=== PATIENT | female | born 1990 | race Asian ===

== ENCOUNTER 2023-05-26 13:15 | Emergency (ER) | payer MEDICAID ==
[~2023-05-26] VITALS: Ht 165.1 cm; Wt 75.0 kg
[~2023-05-26 13:15] MED LIST: FERR325T6 PO; IBUP-2030 PO; PREN1TAB78 PO; VITAMIN C
[2023-05-26 13:26] VITALS: BP 127/63; PULSE 100; RESP 18; TEMP 98.6; O2SAT 100
[2023-05-26] MEDS ORDERED: DIPH25CA83 MT (14:10)
[2023-05-26] MEDS ORDERED: HYDR453.3 TP (14:15)
== END 2023-05-26 14:31 | disposition home or self-care (01) ==
LOC: ER 13:29
DX: R21 Rash and other nonspecific skin eruption (principal)
CPT/HCPCS: 99281; 99282

== ENCOUNTER 2024-01-28 09:53 | Emergency (ER) | payer MEDICAID ==
[~2024-01-28] VITALS: Ht 160 cm; Wt 80.0 kg
[~2024-01-28 09:53] MED LIST changes: +DIPH25CA83 MT; +HYDR453.3 TP
[2024-01-28 10:01] VITALS: O2SAT 99
[2024-01-28] MEDS ORDERED: AMOX-494 MT (10:49)
[2024-01-28] MEDS ORDERED: IBUP-2030 MT (10:49)
[2024-01-28] MEDS ORDERED: KETOROLAC 30MG/ML VIAL IM ONE (11:00)
[2024-01-28] MEDS ORDERED: HYDROCODONE/ACETAMINOPHEN 5/325MG TABLET PO ONE (11:00)
[2024-01-28 11:01] VITALS: TEMP 98.5
[2024-01-28 11:19] VITALS: BP 123/66; PULSE 81; RESP 16
[2024-01-28] MEDS: KETOROLAC 30MG/ML VIAL IM SCH (11:19)
[2024-01-28] MEDS: HYDROCODONE/ACETAMINOPHEN 5/325MG TABLET PO SCH (11:19)
== END 2024-01-28 11:04 | disposition home or self-care (01) ==
LOC: ER 10:14
DX: K04.7 Periapical abscess without sinus (principal); Z98.890 Other specified postprocedural states; Z79.899 Other long term (current) drug therapy
CPT/HCPCS: 81025; 96372; 99283; J1885; Z7610

== ENCOUNTER 2025-07-10 19:24 | Emergency (ER) | payer MEDICAID ==
[~2025-07-10] VITALS: Ht 160 cm; Wt 76.0 kg
[~2025-07-10 19:24] MED LIST changes: +AMOX-494 MT; +IBUP-2030 MT
[2025-07-10 19:41] VITALS: TEMP 36.8; O2SAT 100
[2025-07-10] MEDS ORDERED: ACET-2708 MT (23:35)
[2025-07-11 00:46] VITALS: BP 126/83; PULSE 80; RESP 14; O2SAT 100
== END 2025-07-11 00:46 | disposition home or self-care (01) ==
LOC: ER 19:24
DX: S92.512A Displaced fracture of proximal phalanx of left lesser toe(s), initial encounter for closed fracture (principal); Z79.899 Other long term (current) drug therapy; Z98.890 Other specified postprocedural states; W01.0XXA Fall on same level from slipping, tripping and stumbling without subsequent striking against object, initial encounter; Y93.89 Activity, other specified; Y92.89 Other specified places as the place of occurrence of the external cause; Y99.8 Other external cause status
CPT/HCPCS: 73660; 81025; 99283